=== PATIENT | male | born 1985 | race American Indian/Alaskan Native ===

== ENCOUNTER 2016-11-09 14:47 | Emergency (ER) | payer SELFPAY ==
--- NOTE | 2016-11-09 16:01 | Emergency Department Report ---
Chief Complaint: Extremity Injury, Upper Stated Complaint: LEFT HAND LACERATION/WORK RELATED Time Seen by Provider: 11/09/16 15:50 - HPI History of Present Illness: lac to hand at work bleeding controlled needs sutures and tdap vss nad n/v intact - ROS Review of Systems: as noted - Exam Vital Signs: Vital Signs 11/09/16 15:50 Temperature 98.6 F Pulse Rate 74 Respiratory 20 Rate Blood Pressure 131/90 O2 Sat by Pulse 98 Oximetry MSE screening note: Focused history and physical exam performed. Due to findings the following was ordered: ED Disposition for MSE Condition: Stable
[2016-11-09] MEDS ORDERED: TENIVAC IM ONE (17:00)
[2016-11-09] MEDS ORDERED: BOOSTRIX IM ONE (18:34)
[2016-11-09] MEDS ORDERED: NACL 0.9% IR ONE (18:50)
[2016-11-09] MEDS ORDERED: XYLOCAINE 1% MPF 5 mL INFILTRATI ONE (18:50)
--- NOTE | 2016-11-09 18:59 | Emergency Department Report ---
- General Chief complaint: Extremity Injury, Upper Stated complaint: LEFT HAND LACERATION/WORK RELATED Time Seen by Provider: 11/09/16 18:50 Source: patient, family Mode of arrival: Ambulatory Limitations: No Limitations - History of Present Illness Initial comments: Reports that he cut his left hand after working on a boat trailer and he said he 's cut his hand on the boat trailer which was stable. He said he applied pressure to decided to stop the bleeding. She reports some burning to side 6 out of 10. Denies any numbness or tingling. Denies any pain to wrist fingers her forearm. Tetanus shot is not up-to-date. Denies any fever or chills. MD complaint: laceration (left hand) -: This afternoon Location: L hand (.) Severity: moderate Severity scale (0 -10): 6 Quality: burning Consistency: constant Improves with: immobilization, rest Worsens with: palpation, movement Context: other (injury from both Kd) Associated symptoms: athralgias Treatments Prior to Arrival: bandages - Related Data Previous Rx's Medication Instructions Recorded Last Taken Type Cephalexin [Keflex] 500 mg PO Q8HR #21 cap 11/09/16 Unknown Rx Ibuprofen [Motrin] 600 mg PO Q8H PRN #15 tablet 11/09/16 Unknown Rx Allergies Allergy/AdvReac Type Severity Reaction Status Date / Time No Known Allergies Allergy Unverified 11/09/16 15:50 Abscess Boil HPI - HPI Chief Complaint: Extremity Injury, Upper Stated Complaint: LEFT HAND LACERATION/WORK RELATED Time Seen by Provider: 11/09/16 18:50 Home Medications: Previous Rx's Medication Instructions Recorded Last Taken Type Cephalexin [Keflex] 500 mg PO Q8HR #21 cap 11/09/16 Unknown Rx Ibuprofen [Motrin] 600 mg PO Q8H PRN #15 tablet 11/09/16 Unknown Rx Allergies/Adverse Reactions: Allergies Allergy/AdvReac Type Severity Reaction Status Date / Time No Known Allergies Allergy Unverified 11/09/16 15:50 ED Review of Systems ROS: Stated complaint: LEFT HAND LACERATION/WORK RELATED Other details as noted in HPI Comment: All other systems reviewed and negative Constitutional: denies: chills, fever Respiratory: no symptoms reported Cardiovascular: denies: chest pain, palpitations, edema, syncope Gastrointestinal: denies: abdominal pain, nausea, vomiting Musculoskeletal: arthralgia. denies: back pain, joint swelling Skin: other (laceration left hand) Neurological: denies: headache, weakness, numbness, paresthesias, confusion, abnormal gait, vertigo ED Past Medical Hx - Past Medical History Previous Medical History?: No - Surgical History Past Surgical History?: No - Family History Family history: no significant - Social History Smoking Status: Current Every Day Smoker Substance Use Type: Alcohol, Marijuana - Medications Home Medications: Home Medications Medication Instructions Recorded Confirmed Last Taken Type Cephalexin [Keflex] 500 mg PO Q8HR #21 cap 11/09/16 Unknown Rx Ibuprofen [Motrin] 600 mg PO Q8H PRN #15 tablet 11/09/16 Unknown Rx ED Physical Exam - General Limitations: No Limitations General appearance: alert, in no apparent distress - Head Head exam: Present: atraumatic, normocephalic, normal inspection - Neck Neck exam: Present: normal inspection, full ROM. Absent: tenderness, meningismus, lymphadenopathy - Respiratory Respiratory exam: Present: normal lung sounds bilaterally. Absent: chest wall tenderness - Cardiovascular Cardiovascular Exam: Present: regular rate, normal rhythm, normal heart sounds - Extremities Exam Extremities exam: Present: full ROM, tenderness (left hand laceration site), normal capillary refill. Absent: normal inspection, pedal edema, joint swelling - Expanded Upper Extremity Exam Left General: Present: laceration (left hand at first metacarpal area dorsal aspect) . Absent: abrasion, nail injury (#), foreign body, amputation, avulsion Shoulder Exam: Present: normal inspection, full ROM. Absent: tenderness, swelling, abrasion, laceration, ecchymosis, deformity, crepidus, dislocation, erythema, tenderness over AC joint Upper Arm exam: Present: normal inspection, full ROM. Absent: tenderness, swelling, abrasion, laceration, ecchymosis, deformity, crepidus, dislocation, erythema Elbow exam: Present: normal inspection, full ROM. Absent: tenderness, swelling , abrasion, laceration, ecchymosis, deformity, crepidus, dislocation, erythema, effusion, pain w/ pronation/supination, tenderness over radial head Forearm Wrist exam: Present: normal inspection, full ROM. Absent: tenderness, swelling, abrasion, laceration, ecchymosis, deformity, crepidus, dislocation, erythema, tenderness over anatomical snuff box, pain with axial thumb loading Hand Wrist exam: Present: full ROM, tenderness (at first metacarpal area dorsal aspect), laceration (1 cm laceration). Absent: swelling, abrasion, ecchymosis, deformity, crepidus, dislocation, erythema, amputation, nail avulsion, subungual hematoma Neuro motor exam: Present: wrist extension intact, thumb opposition intact, thumb IP flexion intact, thumb adduction intact, fingers 2-5 abduction intact Neurosensory exam: Present: 2-point discrimination, radial nerve intact, ulnar nerve intact, median nerve intact Vascular: Present: normal capillary refill, radial pulse, brachial pulse, ulnar pulse. Absent: vascular compromise, Pallo, pulse deficit radial art, pulse deficit ulnar art, pulse deficit brachial art - Back Exam Back exam: Present: normal inspection, full ROM - Neurological Exam Neurological exam: Present: alert, oriented X3, normal gait, reflexes normal. Absent: motor sensory deficit - Psychiatric Psychiatric exam: Present: normal affect, normal mood - Skin Skin exam: Present: warm, dry, normal color, other (laceration) - Expanded Skin Exam Expanded Type of lesion: Present: laceration (laceration to first metacarpal area without any bony tenderness. Superficial. No bleeding.) Distribution of rash: LUE ( left dorsal aspect of hand [employer] carpal area) Description of rash: Present: size (1 cm), tenderness. Absent: erythematous, swelling, discharge ED Course Vital Signs 11/09/16 15:50 Temperature 98.6 F Pulse Rate 74 Respiratory 20 Rate Blood Pressure 131/90 O2 Sat by Pulse 98 Oximetry - Reevaluation(s) Reevaluation #1: 11/09/16 20:52 given tetanus vaccine in emergency room. - Laceration /Wound Repair Left Dorsal Hand Wound Location: upper extremity (left dorsal aspect of his hand at first metacarpal area) Wound Length (cm): 1 Wound's Depth, Shape: superficial, linear Wound Explored: no foreign body removed Irrigated w/ Saline (ccs): 250 Betadine Prep?: Yes Anesthesia: 1% Lidocaine Volume Anesthetic (ccs): 3 Wound Debrided: moderate Wound Repaired With: sutures Suture Size/Type: 4:0 (Ethilon) Number of Sutures: 7 Layer Closure?: No Sterile Dressing Applied?: Yes ED Medical Decision Making - Medical Decision Making ED course: Procedure note for laceration repair. And advised to return in 7-10 days to have stitches removed. No signs of left hand laceration status post suture repair. Patient was given tetanus vaccine in emergency room. Discharged home with prescription for Keflex and Motrin. Critical care attestation.: If time is entered above; I have spent that time in minutes in the direct care of this critically ill patient, excluding procedure time. ED Disposition Clinical Impression: Arthralgia of hand, left Laceration of left hand Qualifiers: Encounter type: initial encounter Qualified Code(s): S61.412A - Laceration without foreign body of left hand, initial encounter Hand injury Qualifiers: Encounter type: initial encounter Laterality: left Qualified Code(s): S69.92XA - Unspecified injury of left wrist, hand and finger(s), initial encounter Disposition: DISCHARGED TO HOME OR SELFCARE Is pt being admited?: No Does the pt Need Aspirin: No Condition: Stable Instructions: Laceration (ED), Suture Care (ED), Arthralgia (ED) Additional Instructions: Please keep affected area clean and dry Return to the emergency room in 7-10 days to have stitches removed Take antibiotic as prescribed. Prescriptions: Cephalexin [Keflex] 500 mg PO Q8HR #21 cap Ibuprofen [Motrin] 600 mg PO Q8H PRN #15 tablet PRN Reason: Pain Referrals: PRIMARY CARE, [Primary Care Provider] - 7-10 days [facility] [Outside] - 7-10 days Forms: Work/School Release Form(ED)
[2016-11-09 21:08] VITALS: BP 142/86
== END 2016-11-09 21:07 | disposition home or self-care (01) ==
LOC: ED 14:47
DX: S61.412A Laceration without foreign body of left hand, initial encounter (principal); F17.200 Nicotine dependence, unspecified, uncomplicated; F12.10 Cannabis abuse, uncomplicated; W45.8XXA Other foreign body or object entering through skin, initial encounter; Y93.89 Activity, other specified; Y99.8 Other external cause status; Y92.89 Other specified places as the place of occurrence of the external cause
CPT/HCPCS: 90471; 90714; 90715

== ENCOUNTER 2016-11-17 12:00 | Emergency (ER) | payer OTHER ==
[2016-11-17 12:34] VITALS: BP 101/69
--- NOTE | 2016-11-17 13:01 | Emergency Department Report ---
Suture/Staple Removal - [facility] Chief Complaint: Laceration/Recheck/Suture Stated Complaint: SUTURE REMOVAL Time Seen by Provider: 11/17/16 12:57 When Sutures or Jewels Placed: 8-10 Days Ago ED Review of Systems ROS: Stated complaint: SUTURE REMOVAL Other details as noted in HPI Comment: All other systems reviewed and negative Constitutional: no symptoms reported Eyes: as per HPI ENT: as per HPI Respiratory: no symptoms reported Cardiovascular: as per HPI Endocrine: no symptoms reported Gastrointestinal: as per HPI Genitourinary: as per HPI Musculoskeletal: as per HPI Skin: as per HPI Neurological: as per HPI Psychiatric: as per HPI Hematological/Lymphatic: as per HPI ED Past Medical Hx - Past Medical History Previous Medical History?: No - Surgical History Past Surgical History?: No - Social History Smoking Status: Former Smoker Substance Use Type: Alcohol - Medications Home Medications: Home Medications Medication Instructions Recorded Confirmed Last Taken Type Cephalexin [Keflex] 500 mg PO Q8HR #21 cap 11/09/16 Unknown Rx Ibuprofen [Motrin] 600 mg PO Q8H PRN #15 tablet 11/09/16 Unknown Rx Suture Removal Exam - Exam General: Vital signs noted. No distress. Alert and acting appropriately. Wound: No Pathologic Erythema, No Tenderness, No Drainage, No Pus, No Wound Dehiscence Other Systems: All other systems reviewed and are unremarkable. ED Course Vital Signs 11/17/16 12:31 Temperature 98.1 F Pulse Rate 56 L Respiratory 16 Rate Blood Pressure 101/69 O2 Sat by Pulse 100 Oximetry ED Recheck MDM - Medical Decision Making no s/s infection Critical care attestation.: If time is entered above; I have spent that time in minutes in the direct care of this critically ill patient, excluding procedure time. ED Disposition Clinical Impression: Visit for suture removal Disposition: DISCHARGED TO HOME OR SELFCARE Is pt being admited?: No Does the pt Need Aspirin: No Condition: Good Instructions: Suture Removal (ED) Additional Instructions: keep clean and dry no ointments Referrals: ALYX BRINK MD [Staff Physician] - 3-5 Days Time of Disposition: 13:01
== END 2016-11-17 13:23 | disposition home or self-care (01) ==
LOC: ED 12:00
DX: S61.412D Laceration without foreign body of left hand, subsequent encounter (principal); Z87.891 Personal history of nicotine dependence

== ENCOUNTER 2017-01-27 10:26 | Emergency (ER) | payer SELFPAY ==
--- NOTE | 2017-01-27 13:02 | Emergency Department Report ---
ED General Adult HPI - General Chief complaint: Medical Clearance Stated complaint: ELETRICAL SHOCK/RAPID HEART BEAT/SHAKING Time Seen by Provider: 01/27/17 13:00 Source: patient Mode of arrival: Ambulatory Limitations: No Limitations - History of Present Illness Initial comments: Patient states that he was shocked from a 220 line at work which was used for a condenser. He touched the line with his right hand. He sustained no burn. He had very transient chest pain. He states that for a second he felt like his hands had locked up. However, he did not lose consciousness. He does not complain of any muscle pain or difficulty urinating. He is essentially asymptomatic at this time. -: Sudden Location: chest Radiation: non-radiation Quality: aching (very transient) Consistency: now resolved Improves with: none Worsens with: none Associated Symptoms: denies other symptoms Treatments Prior to Arrival: none - Related Data Home Medications Medication Instructions Recorded Confirmed Last Taken No Known Home Medications [No 01/27/17 01/27/17 Unknown Reported Home Medications] Allergies Allergy/AdvReac Type Severity Reaction Status Date / Time No Known Allergies Allergy Verified 01/27/17 10:43 ED Review of Systems ROS: Stated complaint: ELETRICAL SHOCK/RAPID HEART BEAT/SHAKING Other details as noted in HPI Constitutional: denies: chills, fever Eyes: denies: eye pain, eye discharge, vision change ENT: denies: ear pain, throat pain Respiratory: denies: cough, shortness of breath, wheezing Cardiovascular: denies: chest pain, palpitations Endocrine: no symptoms reported Gastrointestinal: denies: abdominal pain, nausea, diarrhea Genitourinary: denies: urgency, dysuria Musculoskeletal: denies: back pain, joint swelling, arthralgia Skin: denies: rash, lesions Neurological: denies: headache, weakness, paresthesias Psychiatric: denies: anxiety, depression Hematological/Lymphatic: denies: easy bleeding, easy bruising ED Past Medical Hx - Past Medical History Previous Medical History?: No - Surgical History Past Surgical History?: No - Social History Smoking Status: Current Every Day Smoker Substance Use Type: Alcohol - Medications Home Medications: Home Medications Medication Instructions Recorded Confirmed Last Taken Type No Known Home Medications [No 01/27/17 01/27/17 Unknown History Reported Home Medications] ED Physical Exam - General Limitations: No Limitations General appearance: alert, in no apparent distress - Head Head exam: Present: atraumatic, normocephalic - Eye Eye exam: Present: normal appearance, PERRL, EOMI. Absent: scleral icterus - ENT ENT exam: Present: mucous membranes moist - Neck Neck exam: Present: normal inspection - Respiratory Respiratory exam: Present: normal lung sounds bilaterally. Absent: respiratory distress - Cardiovascular Cardiovascular Exam: Present: regular rate, normal rhythm. Absent: systolic murmur, diastolic murmur, rubs, gallop - GI/Abdominal GI/Abdominal exam: Present: soft, normal bowel sounds. Absent: distended, tenderness, guarding, rebound - Rectal Rectal exam: Present: deferred - Extremities Exam Extremities exam: Present: normal inspection - Back Exam Back exam: Present: normal inspection - Neurological Exam Neurological exam: Present: alert, oriented X3, CN II-XII intact. Absent: motor sensory deficit - Psychiatric Psychiatric exam: Present: normal affect, normal mood - Skin Skin exam: Present: warm, dry, intact, normal color. Absent: rash ED Course Vital Signs 01/27/17 01/27/17 10:39 13:37 Temperature 98.4 F 97.8 F Pulse Rate 60 54 L Respiratory 17 18 Rate Blood Pressure 132/88 Blood Pressure 129/79 [Left] O2 Sat by Pulse 100 100 Oximetry - Reevaluation(s) Reevaluation #1: Patient was observed here remained asymptomatic. A urine specimen was inspected. It was yellow in color. There is no signs of rhabdomyolysis. It was sent to the lab. 01/27/17 14:19 ED Medical Decision Making - EKG Data -: EKG Interpreted by Me EKG shows normal: sinus rhythm, axis, intervals, QRS complexes, ST-T waves Rate: normal - EKG Data Interpretation: normal EKG Critical care attestation.: If time is entered above; I have spent that time in minutes in the direct care of this critically ill patient, excluding procedure time. ED Disposition Clinical Impression: Electrical shock of hand Qualifiers: Encounter type: initial encounter Qualified Code(s): T75.4XXA - Electrocution, initial encounter Disposition: DC-01 TO HOME OR SELFCARE Is pt being admited?: No Does the pt Need Aspirin: No Condition: Stable Instructions: Electrical [place] in Adults (ED) Additional Instructions: Increase fluids today. I wouldn't anticipate that you have any further problem. We will call you if there is any abnormality of your urine tests. Follow-up with your company or primary care physician Referrals: PRIMARY CARE, [Primary Care Provider] - 2-3 Days Time of Disposition: 14:20
[2017-01-27 14:49] VITALS: BP 105/59
[2017-01-27 15:00] LABS: Bacteria,Urine 1+ /HPF (Negative); Bilirubin,Urine NEG (Negative); Blood,Urine NEG (Negative); Ketones,Urine NEG (Negative); Leukocyte Esterase,Urine TR (Negative); Mucus,Urine 1+ /HPF; Nitrite,Urine NEG (Negative); Protein,Urine <15 mg/dL mg/dL (Negative); Urobilinogen,Urine < 2.0 mg/dL (<2.0)
== END 2017-01-27 14:49 | disposition home or self-care (01) ==
LOC: ED 10:26
DX: T75.4XXA Electrocution, initial encounter (principal); W85.XXXA Exposure to electric transmission lines, initial encounter; F17.200 Nicotine dependence, unspecified, uncomplicated
CPT/HCPCS: 81001; 93005; 93010; 99284